=== PATIENT | female | born 1965 | race Caucasian/White ===

== ENCOUNTER 2018-11-07 09:34 | Outpatient (CLI) | payer BC ==
--- NOTE | 2018-11-07 11:22 | BD ---
DEXA BONE DENSITY STUDY: Date: 11/07/18 HISTORY: Osteoporosis screening. COMPARISON: None. FINDINGS: Lumbar Spine: BMD (g/cm2) L1 1.047 T-Score: 0.5 Z-Score: 1.5 L2 1.099 T-Score: 0.6 Z-Score: 1.7 L3 1.057 T-Score: -0.2 Z-Score: 0.8 L4 1.066 T-Score: -0.0 Z-Score: 1.2 L1-L4 1.068 T-Score: 0.2 Z-Score: 1.3 WHO Classification: Normal. Left Femoral Neck: 0.788 T-Score: -0.6 Z-Score: 0.5 Total Femur: 1.001 T-Score: 0.5 Z-Score: 1.2 WHO Classification: Normal. IMPRESSION: Normal bone mineral density. POS: [facility]
--- NOTE | 2018-11-07 11:42 | MMO ---
Bilateral MAMMO Bilat Screen [facility]. CLINICAL HISTORY: Patient is 53 years old and is seen for screening. The patient has no family history of breast cancer. The patient has no personal history of cancer. The patient has a history of bilateral Breast reduction in 2014. VIEWS: The views performed were: bilateral craniocaudal with tomosynthesis and bilateral mediolateral oblique with tomosynthesis. FILMS COMPARED: The present examination has been compared to prior imaging studies performed at [facility] on 09/18/2013 and 12/12/2014, and at [facility] on 07/13/2007 and 06/06/2011. MAMMOGRAM FINDINGS: The breasts are heterogeneously dense, which could obscure a lesion on mammography. There are no suspicious masses, suspicious calcifications, or new areas of architectural distortion. IMPRESSION: THERE IS NO MAMMOGRAPHIC EVIDENCE OF MALIGNANCY. A ROUTINE FOLLOW-UP MAMMOGRAM IN 1 YEAR IS RECOMMENDED. THE RESULTS OF THIS EXAM WERE SENT TO THE PATIENT. ACR BI-RADS Category 1 - Negative MAMMOGRAPHY NOTE: 1. A negative mammogram report should not delay a biopsy if a dominant of clinically suspicious mass is present. 2. Approximately 10% to 15% of breast cancers are not detected by mammography. 3. Adenosis and dense breasts may obscure an underlying neoplasm.
== END 2018-11-07 09:35 | disposition home or self-care (01) ==
LOC: BICMAMMO 09:34
PROVIDERS: ATTEND Internal Medicine
DX: Z12.31 Encounter for screening mammogram for malignant neoplasm of breast (principal); M85.89 Other specified disorders of bone density and structure, multiple sites; N92.4 Excessive bleeding in the premenopausal period
CPT/HCPCS: 77063; 77067; 77080